=== PATIENT | female | born 1950 | race Caucasian/White ===

== ENCOUNTER 2022-12-07 14:09 | Emergency (ER) | payer MEDICARE, MEDICAID ==
[~2022-12-07] VITALS: Ht 160 cm; Wt 87.0 kg
[2022-12-07 14:18] VITALS: BP 145/75; PULSE 96; RESP 18; TEMP 98.4; O2SAT 100
[2022-12-07 15:08] LABS: BASOPHILS % 1.2 % (0.0-2.0); EOSINOPHILS % 0.6 % (0.0-5.0); HEMATOCRIT. 40.2 % (36.0-48.0); HEMOGLOBIN. 13.6 g/dL (12.0-16.0); LYMPHOCYTES % 31.5 % (20.0-50.0); MEAN CORPUSCULAR HEMOGLOBIN 29.8 pg (28.0-32.0); MEAN CORPUSCULAR HGB CONC 33.8 g/dL (31.0-37.0); MEAN CORPUSCULAR VOLUME 88.2 fL (81.0-99.0); MEAN PLATELET VOLUME 11.3 fl (7.4-10.4); MONOCYTES % 6.3 % (2.0-8.0); NEUTROPHILS % 60.4 % (40.0-76.0); PLATELET 216 x1000/uL (130-400); RED BLOOD CELL COUNT 4.56 mill/uL (4.2-5.4); RED CELL DISTRIBUTION WIDTH 13.1 % (11.6-14.6); WHITE BLOOD COUNT 9.9 x1000/uL (4.5-11.0)
[2022-12-07 15:12] LABS: CHLORIDE 105 mEq/L (98-107); INDEX HEMOLYSI 1 (1-3); INDEX ICTERIC 1 (1-4); INDEX LIPEMIC 1 (1-3); SODIUM 138 mEq/L (136-145)
[2022-12-07 15:35] LABS: ALANINE AMINOTRANSFERASE 23 IU/L (13-61); ALBUMIN 4.1 g/dL (3.4-5.0); ASPARTATE AMINOTRANSFERASE 17 IU/L (15-37); BILIRUBIN TOTAL 0.4 mg/dL (0.1-1.0); CALCIUM 9.9 mg/dL (8.5-10.1); CARBON DIOXIDE 20 mEq/L (21-32); CREATININE 0.5 mg/dL (0.6-1.3); GLUCOSE 124 mg/dL (70-105); NT PRO B-TYPE NATRIURETIC PEP 16 pg/mL (5-125); TROPONIN I HIGH SENSITIVITY 4 ng/L (<54); UREA NITROGEN BLOOD 13 mg/dL (7-21)
[2022-12-07 17:26] LABS: TROPONIN I HIGH SENSITIVITY 4 ng/L (<54)
[2022-12-07] MEDS ORDERED: CYCL10TA21 MT (17:57)
== END 2022-12-07 18:13 | disposition home or self-care (01) ==
LOC: ER 14:09
DX: G58.9 Mononeuropathy, unspecified (principal); E11.9 Type 2 diabetes mellitus without complications; E78.00 Pure hypercholesterolemia, unspecified; I10 Essential (primary) hypertension
CPT/HCPCS: 36415; 71045; 80053; 83880; 84484; 85025; 93005; 99285